=== PATIENT | female | born 1985 | race Caucasian/White ===

== ENCOUNTER 2019-09-11 07:01 | Inpatient (IN) | payer OTHER, SELFPAY ==
[2019-09-11] VITALS (103 sets, daily range): BP systolic 98–160; BP diastolic 45–109; PULSE 84–124; TEMP 36.8–37.2; O2SAT 95–100; BMI 35.9
[2019-09-11 07:48] LABS: Basophils Absolute Auto 0.1 K/mm3 (0.0-0.1); Basophils Percent Auto 0.6 % (0.2-1.2); Eosinophils Absolute Auto 0.1 K/mm3 (0-0.3); Hematocrit 35.3 % (37.0-47.0); Hemoglobin 11.6 g/dL (12.0-15.0); Immature Granulocyte Absolute 0.33 K/mm3 (0.00-0.031); Immature Granulocyte Percent A 3.2 % (0-0.5); Lymphocytes Absolute Auto 1.42 K/mm3 (0.9-3.2); Lymphocytes Percent Auto 13.8 % (18.3-44.2); Mean Corpuscular HGB Conc 32.9 g/dl (32-36); Mean Corpuscular Hemoglobin 30.6 pg (26-34); Mean Corpuscular Volume 93.1 fl (80-100); Mean Platelet Volume 10.7 fl (7.4-10.4); Monocytes Absolute Auto 0.7 K/mm3 (0.1-0.6); Monocytes Percent Auto 6.5 % (2.6-8.5); Neutrophils Absolute Auto 7.7 K/mm3 (1.3-6.7); Neutrophils Percent Auto 74.9 % (45.5-73.1); Platelet Count Result 203 k/mm3 (150-375); Red Blood Count 3.79 M/mm3 (4.2-5.4); Red Cell Distribution Width 13.9 % (11.5-14.5); White Blood Count 10.3 K/mm3 (4.5-10.0)
[2019-09-11] MEDS: OXYTOCIN 30 UNITS/NS 500 ML 30 UNITS/500 ML BAG IV CONT (07:54)
[2019-09-11] MEDS: LACTATED RINGERS 1,000 ML 125 ML IV CONT ×2 (07:55→18:12)
--- NOTE | 2019-09-11 08:27 | LDADM ---
This patient, Desi Huang, was admitted to Labor/Delivery/Recovery 102 on 09/11/19 at 07:01. Plans for labor, pain management and were discussed with patient. Patient/family oriented to hospital policies and general routines including ID bracelet, bed and alarms, visiting hours, pain management, procedures, bathroom and other care routines, personal items, smoking policy, room service/diet and guest tray routines, security routines, and visiting hours. Patient/Family are encouraged to report perceived risks to care and to ask questions if they do not understand what they are told or what they should do. See OBIX for further documentation.
[2019-09-11 10:06] LABS: Rapid Plasma Reagin Non-Reactive (NonReactive)
--- NOTE | 2019-09-11 10:33 | WPDHPUPDATE1 ---
History and Physical Update Update Date/Time: 09/11/19 10:33 34 yo at 40w0d who presents for elective IOL. pt has been uncomplicated to date. She endorses good FM. She denies any vaginal bleeding or LOF. Pt medical hx is complicated by possible ASD. pt has had Echocardiogram earlier in this with good cardiac function and cardiac clearance for vaginal delivery. History and Physical has been reviewed, including an updated exam of the patient. There are NO changes in the patient's condition. Risks, benefits, and alternatives have been discussed and questions answered. Patient agrees to proceed with procedure. A/P: 34 yo at 40w0d admit to L&D routine admission orders Rh+ GBS neg FHT cat 1 no ctx on toco cervix 3cm on exam pitocin induction continuous EFM.
--- NOTE | 2019-09-11 10:45 | P.PNAN_ITS ---
Anes - Eval Pre Procedure Procedure: Labor epidural Date/Time: 09/11/19 10:45 Surgeon: patricia Preop Diagnosis: pain during labor Pre Op Diagnosis: Induction of Labor Patient Data Age: 34 Gender: F Height: 1.63 m Weight: 95 kg Last Vital Signs Temp 36.8 C 09/11/19 09:05 Pulse 117 H 09/11/19 10:31 BP 123/72 09/11/19 10:31 Allergies Allergy/AdvReac Type Severity Reaction Status Date / Time nickel Allergy Rash Verified 09/11/19 08:35 Home Medications Medication Instructions Recorded Confirmed Type PNV cmb#95-ferrous fumarate-FA 1 tablet PO DAILY 08/12/19 08/12/19 History [] Laboratory Tests 09/11/19 09/11/19 09/11/19 07:36 07:36 07:36 WBC 10.3 K/mm3 H K/mm3 (4.5-10.0) RBC 3.79 M/mm3 L M/mm3 (4.2-5.4) Hgb 11.6 g/dL L g/dL (12.0-15.0) Hct 35.3 % L % (37.0-47.0) MCV 93.1 fl fl (80-100) MCH 30.6 pg pg (26-34) MCHC 32.9 g/dl g/dl (32-36) RDW 13.9 % % (11.5-14.5) Plt Count 203 k/mm3 k/mm3 (150-375) MPV 10.7 fl H fl (7.4-10.4) Immature Gran % (Auto) 3.2 % H % (0-0.5) Neut % (Auto) 74.9 % H % (45.5-73.1) Lymph % (Auto) 13.8 % L % (18.3-44.2) [place] % (Auto) 6.5 % % (2.6-8.5) Eos % (Auto) 1.0 % % (0-4.4) Baso % (Auto) 0.6 % % (0.2-1.2) Lymph # (Auto) 1.42 K/mm3 K/mm3 (0.9-3.2) [place] # (Auto) 0.7 K/mm3 H K/mm3 (0.1-0.6) Eos # (Auto) 0.1 K/mm3 K/mm3 (0-0.3) Baso # (Auto) 0.1 K/mm3 K/mm3 (0.0-0.1) Abs Immat Gran (auto) 0.33 K/mm3 H K/mm3 (0.00-0.031) Absolute Neuts (auto) 7.7 K/mm3 H K/mm3 (1.3-6.7) Absolute Nucleated RBC 0.0 K/mm3 K/mm3 (0.0-0.012) Nucleated RBC % 0.0 % % (0.0-0.2) RPR Non-reactive (NonReactive) Blood Type O Positive Antibody Screen Negative Patient hx anesthesia problems: none Family hx anesthesia problems: none PMFSH Past Medical History Medical History (Updated 09/11/19 @ 10:45 by Mya Stein CRNA) IUP (intrauterine ), incidental Obesity (BMI 30-39.9) Family History Family History (Updated 08/12/19 @ 14:08 by Megan Walls RN) Mother Heart disease Sibling Hypertension Social History Social History Smoking status: Never smoker Substance use: never Gender identity (if verbalized by the patient): Female Spiritual care concerns: No Exam Day of Procedure 09/11/19 10:45
--- NOTE | 2019-09-11 16:09 | PM.OBPNLAB ---
Pain Control Date/time seen: 09/11/19 16:09 Pain control: tolerating well Pelvic Exam Dilation (cm): 3 Effacement (%): 75 station: 0 Amniotic membrane status: Intact Contractions Monitor mode: External Contraction frequency: 4 Contraction pattern: Regular Contraction intensity: Moderate Status status: Category l Assessment and Plan Assessment: induction ongoing Plan: begin patient augmentation (AROM, clear fluid) Comments: continue current induction management
--- NOTE | 2019-09-11 20:37 | PM.OBPRVD ---
OB - Delivery Note Procedure Procedure: Patient pushed for a spontaneous vaginal delivery. The fetus was delivered atraumatically and placed on the maternal abdomen. The cord was clamped and cut after 1 minute of life. The cord was double clamped and cut and a segment of cord was collected for cord gases. Cord blood was collected for blood type and Coomb's testing. The placenta delivered spontaneously and was noted to be intact. The perineum was inspected and there were no lacerations noted. The uterus was firm and good hemostasis was noted. The patient and fetus were stable in the delivery room. Intrapartal events: None Induction method: per pitocin protocol Delivery augmentation: rupture of membranes Delivery monitor: external FHT Route of delivery: Episiotomy description: None Laceration description: None Specimen: No Estimated blood loss (mL): 250 Anesthesia type: Epidural Disposition: floor () Complications: No immediate complications Baby Date of : 09/11/19 Time of : 20:25 Weeks of gestation at delivery: 40 Infant gender: Female Weight (pounds): 8 Weight (ounces): 7 presentation: vertex position: Right Occiput Anterior Placenta delivery description: Spontaneous cord vessel description: 3 Vessels score one minute: 8 score five minutes: 8
[2019-09-11] MEDS: OXYTOCIN 30 UNITS/NS 500 ML 30 UNITS/500 ML BAG 125 UNITS IV CONT (21:16)
[2019-09-11] MEDS: WITCH HAZEL 40 PADS 1 PAD TOPICAL (22:32)
[2019-09-11] MEDS: BENZOCAINE 20% AER SPR (*SP) 56 GM CAN 1 SPRAY TOPICAL (22:32)
[2019-09-12] VITALS: BP 126/85; PULSE 97; RESP 18; TEMP 37.2; O2SAT 96
--- NOTE | 2019-09-12 00:22 | PC.NURSE ---
Patient and arrived to room 291 on 09/11/19 at 2318 via wheelchair and infant in crib. Support person (Terri Campos) present. Patient oriented to room, admission packet reviewed, call light in reach. Rusty PRETTY
[2019-09-12 05:32] LABS: Hemoglobin 12.1 g/dL (12.0-15.0)
--- NOTE | 2019-09-12 07:24 | PM.OBDSVD ---
OB - DS: Summary OB Procedures : None OB Procedures Intrapartum: Spontaneous Vag Delivery OB Procedures: : None Status at Discharge Functional status at discharge: independent ambulation Overall status at discharge: patient is back to baseline Time Spent with Patient Time attestation: Total time spent providing and/or coordinating discharge services: Time spent: Less than 30 minutes Exam Const: General: comfortable and no acute distress Resp: Effort & Inspection: normal respiratory effort Auscultation: clear to auscultation bilaterally Cardio: Rate: regular rate GI: GI Palp: Yes Soft to palpation Auscultation: normal bowel sounds Other: Fundus firm below umbilicus Psych: Appearance: grossly normal Mental Status: mental status grossly normal Affect: normal affect DS: Data Data Completed and Pending Labs on day of discharge: Labs from last 24 hours 09/12/19 09/11/19 09/11/19 05:02 07:36 07:36 WBC RBC Hgb 12.1 Hct 37.0 MCV MCH MCHC RDW Plt Count MPV Immature Gran % (Auto) Neut % (Auto) Lymph % (Auto) [place] % (Auto) Eos % (Auto) Baso % (Auto) Lymph # (Auto) [place] # (Auto) Eos # (Auto) Baso # (Auto) Abs Immat Gran (auto) Absolute Neuts (auto) Absolute Nucleated RBC Nucleated RBC % RPR Non-reactive Blood Type O Positive Antibody Screen Negative 09/11/19 07:36 WBC 10.3 H RBC 3.79 L Hgb 11.6 L Hct 35.3 L MCV 93.1 MCH 30.6 MCHC 32.9 RDW 13.9 Plt Count 203 MPV 10.7 H Immature Gran % (Auto) 3.2 H Neut % (Auto) 74.9 H Lymph % (Auto) 13.8 L [place] % (Auto) 6.5 Eos % (Auto) 1.0 Baso % (Auto) 0.6 Lymph # (Auto) 1.42 [place] # (Auto) 0.7 H Eos # (Auto) 0.1 Baso # (Auto) 0.1 Abs Immat Gran (auto) 0.33 H Absolute Neuts (auto) 7.7 H Absolute Nucleated RBC 0.0 Nucleated RBC % 0.0 RPR Blood Type Antibody Screen Discharge Plan Discharge Discharging Clinician: Tito Smith Patient Disposition: Home, Self-Care Activity: pelvic rest Diet: regular Discharge Instructions: call or return for temperature >100.4, bleeding >2 pads/hr for 2 hrs, pain not controlled with medications, signs/symptoms of mastitis Patient Instructions: Antibiotic Form, Vaginal Delivery (DC) Stand Alone Forms: General Discharge Information Follow-up/Referrals: Ronn Dawson MD [Physician] - Discharge Medications: New ibuprofen 600 mg Tablet 600 mg PO Q6H PRN (Reason: Cramping) Qty: 30 RF: 0 acetaminophen [Mapap (acetaminophen)] 325 mg Tablet 650 mg PO Q6H PRN (Reason: Mild Pain (1-3) Or Headache) Qty: 30 RF: 0 Ccf-E-Vwbcvi Cream 1 applic topical PRN PRN (Reason: Sore Nipples) Qty: 1 RF: 0 Continued PNV cmb#95-ferrous fumarate-FA [] 28 mg iron- 800 mcg Tablet 1 tablet PO DAILY RF: 0 Date of admission: 09/11/19 07:01 Primary Care Provider: PHYSICIAN,ENTRY LEVEL FINANCIAL ANALYST Admitting Provider: Ronn Dawson Attending physician on admission: Ronn Dawson
[2019-09-12 08:00] VITALS: BP 113/67; PULSE 87; RESP 20; TEMP 37
[2019-09-12] MEDS: LANOLIN (LANSINOH) 7.5 GM CREAM 1 APPLIC TOPICAL (08:12)
[2019-09-12] MEDS: DOCUSATE SODIUM 100 MG CAPSULE PO ×2 (08:12→16:27)
[2019-09-12] MEDS: MULTIVIT/MIN/PREN/FOL AC/IRON TABLET 1 TAB PO (08:12)
--- NOTE | 2019-09-12 09:46 | WPDANLDPN2 ---
Anes-Prog Note L&D Date/Time: 09/12/19 09:46 Comfortable throughout: labor Epidural/Spinal procedure site: clean & non-tender Neuro status: Neuro function grossly intact. Cardiovascular status: normal Respiratory status: normal Airway patency: baseline Mental status: baseline Post-Op hydration status: normal Vital Signs: Last Vital Signs Temp 37.0 C 09/12/19 08:00 Pulse 87 09/12/19 08:00 Resp 20 09/12/19 08:00 BP 113/67 09/12/19 08:00 Pulse Ox 96 09/12/19 00:00 I/O: Intake & Output 09/11/19 09/12/19 09/12/19 23:59 07:59 15:59 Intake Total 1500 Output Total 108 Balance 1392 Post-procedural complaints: none Patient feedback: Patient satisfied with anesthetic care.
--- NOTE | 2019-09-12 12:10 | PC.NURSE ---
Mother called out for assist with latching to right breast. Mother states will latch to left without difficulties or discomfort. Right nipple is slightly inverted and mother has had issues with latching as she did with first child for a few weeks. Discussed rolling nipple or pumping before latch to draw out nipple. Mother states she has attempted and it does not draw nipple out enought for infant to latch. Offered and explained the Latch assist. Demonstrated use. Mother was able to independently use and latch correctly. Reviewed positioning/alignment in cross cradle, holding breast in U hold and guided asymmetrical latch on. Discussed the rational for each. Infant was able to latch correctly. Infant nursed eagerly, with steady draws and frequent swallowing noted. Reviewed signs of a correct latch, effective nursing and suck swallow ratio. was able to maintain latch without discomfort to mother. Nipple care reviewed. Instructed mother to call out for RN assistance if she is unable to latch for feeding or she has discomfort with nursing. Instructed feeding should be initiated three hours from start of last feeding or if feeding cues are noted before. Mother voiced understanding of information shared. Reviewed feeding cues, frequencies, duration of feedings, feeding elimination flow sheet, and signs of adequate intake. Mother wishes for early discharge. Mother is feeding as required and waking infant to feed if needed. Infant is currently meeting outcomes for weight, output, jaundice and feeding frequencies. Mother states she feels confident to continue effective at home. Reviewed transition to breast milk, signs of adequate intake, and engorgement/relief. Instructed to call ICP if intake/output less than required. Reviewed regular medications mother is taking. Information provided per Davina. Reviewed community resources on the [facility] website and in the Mom/Baby guide. Information on outpatient services provided. Mother has no further questions at this time.
[2019-09-12] MEDS: BENZOCAINE 20% AER SPR (*SP) 56 GM CAN 1 SPRAY TOPICAL (16:26)
[2019-09-12] MEDS: WITCH HAZEL 40 PADS 1 PAD TOPICAL (16:26)
[2019-09-13 13:41] VITALS: BP 126/89; PULSE 78; RESP 18; TEMP 36.7; O2SAT 98
== END 2019-09-12 21:15 | disposition home or self-care (01) | DRG 807 ==
LOC: ANHOB2 09-12 09:50 → ANHLDR 09-14 07:37 → ANHOB2 09-14 07:37
PROVIDERS: Admitting Provider Student in an Organized Health Care Education/Training Program; Visit Provider Student in an Organized Health Care Education/Training Program
DX: O80 Encounter for full-term uncomplicated delivery (principal); Z37.0 Single live birth; Z3A.40 40 weeks gestation of pregnancy
CPT/HCPCS: 36415; 85014; 85018; 85025; 86592; 86850; 86900; 86901; A9270; J2590; J2795; J7120

== ENCOUNTER 2023-03-11 05:58 | Inpatient (IN) | payer OTHER, SELFPAY ==
[2023-03-11] VITALS (125 sets, daily range): BP systolic 85–144; BP diastolic 34–95; PULSE 72–134; RESP 16–18; TEMP 36.3–36.8; O2SAT 92–100; BMI 34.8
--- NOTE | 2023-03-11 06:44 | LDADM ---
This patient, Desi Huang, was admitted to Labor/Delivery/Recovery 104 on 03/11/23 at 05:58. Plans for labor, pain management and were discussed with patient. Patient/family oriented to hospital policies and general routines including ID bracelet, bed and alarms, visiting hours, pain management, procedures, bathroom and other care routines, personal items, smoking policy, room service/diet and guest tray routines, security routines, and visiting hours. Patient/Family are encouraged to report perceived risks to care and to ask questions if they do not understand what they are told or what they should do. See OBIX for further documentation.
[2023-03-11 06:51] LABS: Basophils Percent Auto 0.4 % (0.2-1.2); Eosinophils Absolute Auto 0.1 K/mm3 (0-0.3); Eosinophils Percent Auto 1.3 % (0-4.4); Hematocrit 38.1 % (37.0-47.0); Hemoglobin 11.7 g/dL (12.0-15.0); Immature Granulocyte Absolute 0.22 K/mm3 (0.00-0.031); Immature Granulocyte Percent A 2.2 % (0-0.5); Lymphocytes Absolute Auto 1.33 K/mm3 (0.9-3.2); Lymphocytes Percent Auto 13.5 % (18.3-44.2); Mean Corpuscular HGB Conc 30.7 g/dl (32-36); Mean Corpuscular Hemoglobin 28.9 pg (26-34); Mean Corpuscular Volume 94.1 fl (80-100); Mean Platelet Volume 10.2 fl (7.4-10.4); Monocytes Absolute Auto 0.5 K/mm3 (0.1-0.6); Monocytes Percent Auto 5.5 % (2.6-8.5); Neutrophils Absolute Auto 7.6 K/mm3 (1.3-6.7); Neutrophils Percent Auto 77.1 % (45.5-73.1); Platelet Count Result 182 k/mm3 (150-375); Red Blood Count 4.05 M/mm3 (4.2-5.4); Red Cell Distribution Width 22.4 % (11.5-14.5); White Blood Count 9.8 K/mm3 (4.5-10.0)
[2023-03-11] MEDS: OXYTOCIN 30 UNITS/NS 500 ML 30 UNITS/500 ML BAG IV CONT (06:55)
[2023-03-11] MEDS: LACTATED RINGERS 1,000 ML 125 ML IV CONT ×2 (06:56→12:02)
[2023-03-11] MEDS: AMPICILLIN 2 GM/NS 100 ML 2 GM/100 ML BAG IVPB (06:57)
[2023-03-11 07:25] LABS: Platelet Estimate Adequate (Adequate)
[2023-03-11 07:26] LABS: Hypochromasia 1+ (NORMAL); Schistocytes Rare (NORMAL)
[2023-03-11 07:27] LABS: Anisocytosis 1+ (NORMAL); Atypical Lymphocytes Present
--- NOTE | 2023-03-11 08:47 | WPDOBADMIT ---
Obstetrics - Admit Note Admission Note: record reviewed. Additions to the history and/or subsequent changes in the physical findings follow. 38 y/o at 40 weeks with favorable cervix, here for scheduled induction of labor. GBS pos. AVSS NST reactive TOCO: contractions irregularly ABD soft, nontender, gravid, vertex EXT nontender Cervix 3-4/50/-2. AROM with clear fluid. Vertex. A: IUP at term, desiring induction of labor. GBS pos. P: Oxytocin. Ampicillin. Anticipate .
[2023-03-11] MEDS: AMPICILLIN 1 GM/NS 50 ML 1 GM/50 ML BAG IVPB ×2 (11:00→15:00)
--- NOTE | 2023-03-11 12:41 | PM.OBPNLAB ---
Pain Control Date/time seen: 03/11/23 12:41 Comments: Comfortable with epidural. Pelvic Exam Dilation (cm): 4 Effacement (%): 50 station: -2 Comments: IUPC placed. Contractions Contraction frequency: 3 Contraction pattern: Regular Contraction intensity: Strong/Firm Status status: Category l Assessment and Plan Plan: continuous present management
--- NOTE | 2023-03-11 12:44 | WPDANESEPP ---
Anes - Eval Pre Procedure Procedure: labor pain management Date/Time: 03/11/23 12:44 Surgeon: Eunice Preop Diagnosis: pain during labor Pre Op Diagnosis: IOL Patient Data Age: 38 Gender: F Height: 1.63 m Weight: 92 kg Last Vital Signs Temp 97.8 F 03/11/23 11:43 Pulse 87 03/11/23 12:43 Resp 18 03/11/23 11:43 BP 124/63 03/11/23 12:43 Pulse Ox 100 03/11/23 12:44 O2 Del Method Room Air 03/11/23 06:40 Allergies Allergy/AdvReac Type Severity Reaction Status Date / Time nickel Allergy Rash Verified 02/22/23 15:45 Home Medications Medication Instructions Recorded Confirmed Type vit no.95-ferrous 1 tablet PO DAILY 08/12/19 03/11/23 History fumarate 28 mg-folic acid 800 mcg tablet () ferrous sulfate 325 mg (65 mg 325 mg PO DAILY 02/22/23 03/11/23 History iron) tablet Laboratory Tests 03/11/23 03/11/23 06:45 06:46 WBC 9.8 K/mm3 (4.5-10.0) RBC 4.05 L M/mm3 (4.2-5.4) Hgb 11.7 L g/dL (12.0-15.0) Hct 38.1 % (37.0-47.0) MCV 94.1 fl (80-100) MCH 28.9 pg (26-34) MCHC 30.7 L g/dl (32-36) RDW 22.4 H % (11.5-14.5) Plt Count 182 k/mm3 (150-375) MPV 10.2 fl (7.4-10.4) Immature Gran % (Auto) 2.2 H % (0-0.5) Neut % (Auto) 77.1 H % (45.5-73.1) Lymph % (Auto) 13.5 L % (18.3-44.2) [place] % (Auto) 5.5 % (2.6-8.5) Eos % (Auto) 1.3 % (0-4.4) Baso % (Auto) 0.4 % (0.2-1.2) Lymph # (Auto) 1.33 K/mm3 (0.9-3.2) [place] # (Auto) 0.5 K/mm3 (0.1-0.6) Eos # (Auto) 0.1 K/mm3 (0-0.3) Baso # (Auto) 0.0 K/mm3 (0.0-0.1) Abs Immat Gran (auto) 0.22 H K/mm3 (0.00-0.031) Absolute Neuts (auto) 7.6 H K/mm3 (1.3-6.7) Absolute Nucleated RBC 0.0 K/mm3 (0.0-0.012) Nucleated RBC % 0.0 % (0.0-0.2) Atypical Lymphocytes Present Platelet Estimate Adequate (Adequate) Hypochromasia 1+ (NORMAL) Anisocytosis 1+ (NORMAL) Schistocytes Rare (NORMAL) RPR Pending Blood Type O Positive Antibody Screen Negative Patient hx anesthesia problems: none Family hx anesthesia problems: none Results Review: All pre-operative results and documents have been reviewed as part of the pre-operative evaluation. [facility] Past Medical History Medical History IUP (intrauterine ), incidental Obesity (BMI 30-39.9) Family History Family History Mother Heart disease Sibling Hypertension Social History Social History Smoking status: Never smoker Substance use: never Do You Feel Safe in your Home?: Yes Lack of Transportation: No Lack of Food: Never True Current Housing: I Have Housing Concerned About Future Housing: No Difficulty Paying Gas/Electric Bills: No Difficulty Paying for Meds: No Currently Unemployed: No Education: Associate Degree Difficulty w/ Childcare or Family Care: No Gender identity (if verbalized by the patient): Female Spiritual care concerns: No Exam Day of Procedure 03/11/23 12:44
[2023-03-11 14:45] LABS: Rapid Plasma Reagin Non-Reactive (NonReactive)
--- NOTE | 2023-03-11 15:51 | PM.OBPRVD ---
OB - Vaginal Delivery Note Procedure Delivery date: 03/11/23 Events: Elective Induction of Labor and Positive Group B Strep (GBS) Induction method: Per Pitocin Protocol Delivery augmentation: Rupture of Membranes Delivery monitor: External FHT, External Uterine and Internal Uterine Route of delivery: Episiotomy description: None Laceration Description: None Specimen: Yes (cord blood) Quantitative Blood Loss (ml): 80 Anesthesia type: Epidural Disposition: PACU Complications: None Narrative: 38 y/o at 40 weeks gestation who presented to the hospital for induction of labor. She was given ampicillin for GBS colonization. Oxytocin was administered intravenously. Amniotomy was performed with return of clear fluid. She received an epidural for pain control. Her labor progressed and her cervix dilated completely. She pushed with good effort and delivered the infant's head to the perineum, followed by the body. The nose and mouth were bulb suctioned. After a delay, the cord was clamped and cut. The was handed off the field. Cord blood was collected. The placenta delivered spontaneously and was grossly normal in appearance. The usual 3 vessel cord was noted. There were no lacerations. Needle and instrument counts were correct. The patient was taken to recovery room in stable condition. The infant went to the nursery in stable condition. I was present and scrubbed for the entire delivery. Baby Date of : 03/11/23 Time of : 15:40 Weeks of gestation at delivery: 40 gender: Female presentation: vertex position: Right Occiput Anterior Placenta delivery description: Spontaneous and Normal Configuration Cord Vessel Description: 3 Vessels score one minute: 9 score five minutes: 9
--- NOTE | 2023-03-11 15:53 | PM.OBDSVD ---
DS: Admitting Diagnosis Discharge Date 03/12/23 Admitting Diagnosis IUP at 40 weeks GBS pos DS: Discharge Diagnosis Discharge Diagnosis (1) (normal spontaneous vaginal delivery): Code(s): O80 - Encounter for full-term uncomplicated delivery Status: Acute (2) GBS (group B Streptococcus carrier), +RV culture, currently : Code(s): O99.820 - Streptococcus B carrier state complicating Status: Acute OB - DS: Summary OB Procedures : None OB Procedures Intrapartum: Spontaneous Vag Delivery and GBS prophylaxis OB Procedures: : None Peripartum Data Laceration Description: None Episiotomy description: None Time Spent with Patient Time attestation: Total time spent providing and/or coordinating discharge services: DS: Data Data Completed and Pending Labs on day of discharge: Labs from last 24 hours 03/11/23 03/11/23 06:46 06:45 WBC 9.8 RBC 4.05 L Hgb 11.7 L Hct 38.1 MCV 94.1 MCH 28.9 MCHC 30.7 L RDW 22.4 H Plt Count 182 MPV 10.2 Immature Gran % (Auto) 2.2 H Neut % (Auto) 77.1 H Lymph % (Auto) 13.5 L [place] % (Auto) 5.5 Eos % (Auto) 1.3 Baso % (Auto) 0.4 Lymph # (Auto) 1.33 [place] # (Auto) 0.5 Eos # (Auto) 0.1 Baso # (Auto) 0.0 Abs Immat Gran (auto) 0.22 H Absolute Neuts (auto) 7.6 H Absolute Nucleated RBC 0.0 Nucleated RBC % 0.0 Atypical Lymphocytes Present Platelet Estimate Adequate Hypochromasia 1+ Anisocytosis 1+ Schistocytes Rare RPR Non-reactive Blood Type O Positive Antibody Screen Negative Discharge Plan Discharge Attending physician on discharge: Ronn Dawson Consulting providers: Shae Wheat Discharging Clinician: Ronn Dawson Patient Disposition: Home, Self-Care Activity: pelvic rest Diet: regular Discharge Instructions: Education: Mom and Baby Guide Given to: Mother Follow-Up: Call your delivering provider's office for an appointment to be seen in: 6 Weeks Mom and baby should come to the [facility] for the follow-up appointment. Appointment Date/Time: Wednesday, March 15, 2023 at 2:30 pm What to expect at your follow-up visit: Physical Assessment Call [phone] if you are unable to keep your appointment time. BREAST CARE: * Wear a snug supportive bra. * For engorgement discomfort: Breast Feeding: * Apply warm moist washcloths * Express milk as needed to relieve engorgement * Wear loose clothing * For sore nipples: * Identify correct latch-on * Apply warm moist washcloths before and after nursing * Air dry nipples after nursing * May apply Lansinoh cream to nipples EPISIOTOMY/PERINEAL CARE: * Until bleeding stops, use your wayne bottle after urinating * Change your pad frequently throughout the day * You may take sitz baths several times a day (fill your bathtub with warm water and soak for 20 minutes.) Do NOT bathe in the water * No tub baths until seen by your physician - You may shower ACTIVITY: * Rest as much as possible. * Do not exercise or lift anything heavier than your baby (such as laundry or other children.) * Avoid stairs or driving as much as possible. * Do not put anything into the vagina. No douching, tampons, or sexual activity until seen by physician. NOTIFY PHYSICIAN IF YOU HAVE ANY QUESTIONS OR IF ANY OF THE FOLLOWING SYMPTOMS OCCUR: * If your episiotomy or incision becomes red, swollen, or more painful than what you have experienced in the hospital. * If your vaginal bleeding becomes foul smelling. * If your vaginal bleeding becomes more heavy than a period or if your bleeding changes from pink to bright red. However, you may pass an occasional walnut-sized clot once or twice for the first week . * If you experience a sharp, shooting pain in you calves. * If you discover a
[2023-03-11] MEDS: OXYTOCIN 30 UNITS/NS 500 ML 30 UNITS/500 ML BAG 125 UNITS IV CONT (16:17)
[2023-03-11] MEDS: ACETAMINOPHEN 325 MG TABLET 650 MG PO (17:16)
[2023-03-11] MEDS: WITCH HAZEL 40 PADS 1 PAD TOPICAL (17:16)
[2023-03-11] MEDS: BENZOCAINE 20% AER SPR (*SP) 56 GM CAN 1 SPRAY TOPICAL (17:16)
[2023-03-11] MEDS: LANOLIN (LANSINOH) 7.5 GM CREAM 1 APPLIC TOPICAL (17:18)
--- NOTE | 2023-03-11 18:30 | OBPPTRN ---
Patient transferred to post room #292 via w/c. Support person present. Oriented to unit, room, information board, rooming in, admission packet and security measures. Patient verbalizes understanding.
[2023-03-12] VITALS: BP 109/75; PULSE 91; RESP 18; TEMP 36.6
[2023-03-12 04:46] LABS: Hematocrit 37.8 % (37.0-47.0); Hemoglobin 11.4 g/dL (12.0-15.0)
--- NOTE | 2023-03-12 06:57 | PM.OBPNVD ---
OB - PN: Subj Subjective Date/time seen: 03/12/23 06:57 Patient comments: no complaints and pain well controlled baby status: doing well OB - PN: Obj Data Labs 03/12/23 04:06 Labs: Laboratory Results - last 24 hr 03/11/23 03/11/23 03/12/23 06:45 06:46 04:06 Hgb 11.4 L Hct 37.8 Atypical Lymphocytes Present Platelet Estimate Adequate Hypochromasia 1+ Anisocytosis 1+ Schistocytes Rare RPR Non-reactive Blood Type O Positive Antibody Screen Negative OB - PN A/P Plan day: 2 Plan: routine care, discharge home and follow up 6 weeks Time Spent With Patient Time: Total time spent is greater than 50% in coordination of care (as documented) at patient's floor/unit and/or counseling patient: Time with patient: less than 15 minutes Exam Const: General: cooperative, healthy appearing and comfortable Nutritional Appearance: average body habitus Orientation/consciousness: oriented to person, oriented to place and oriented to time Resp: Effort & Inspection: normal respiratory effort GI: Inspection: normal to inspection (Fundus firm below the umbilicus)
[2023-03-12 07:30] VITALS: BP 113/65; PULSE 78; RESP 16; TEMP 36.7; O2SAT 98
[2023-03-12 12:04] VITALS: BP 131/88; PULSE 88; RESP 16; TEMP 36.7; O2SAT 99
--- NOTE | 2023-03-12 16:46 | PC.NURSE ---
[id number] Introductions were made, then consulted with patient to assess needs related to . Mother led the conversation with her?plans to feed?her infant, the?experience so far, her history with , and pointed out the small purple bruise like spot on her areola from an earlier feeding. Encouraged understanding of the benefits of skin to skin (demonstrating unwrapping infant and placing upright on her chest), stimulating with massage touch, changing positions to encourage wakefulness, how to watch for early feeding cues, responsive feeding, feeding on demand (aiming for 8-12 times in 24 hours, about every 2-3 hours), milk production, hand expression, building/maintaining a milk supply, duration of feeding, signs of adequate intake/output and how to record on the feeding sheet. Mother works well with her infant with encouragement and education. Reviewed positioning and ear, shoulder, hip alignment, supporting the breast to facilitate a deep latch, asymmetrical latch (off-center), leading with the chin with a big, open, wide gape and body close to mother. Mother hand expressed and encouraged the milk to express, then latched optimally to the left, then right breast in cross cradle position. Education given to the mother of how to visualize the suckling (with good rocking jaw motion), swallows (dropping of the lower jaw) and how to listen for drinking at the breast (the ka sound) and infant demonstrated effective with lowering of the jaw with good ratios of suck/swallow. Infant was able to maintain latch without pain to mother protecting the nipple with optimal positioning and latching. Reviewed comfort measures of healing with a warm, wet washcloth to rinse breast, then leave open to air-dry, good handwashing when or touching the breast/nipples to prevent infection. Mother voiced understanding of skin to skin, stimulating with massage touch, responsive feedings, hand expressed colostrum, talking to infant to encourage if it has been 2 -2.5 hours since the start of the last , to call if does not latch, or if there is discomfort with . Resources used for education were facilitated with the visual educational handouts, tool, mom and baby guide. Inpatient/outpatient resources provided with feeding sheet and the mom/baby guide. Mother voiced understanding of information, demonstrated learning and will call if there is a request for assistance. Reported to the Primary RN.
[2023-03-15 15:06] VITALS: BP 119/73; PULSE 83; RESP 18; TEMP 36.9; O2SAT 99
== END 2023-03-12 19:00 | disposition home or self-care (01) | DRG 807 ==
LOC: ANHLDR 15:54 → ANHOB2 03-12 17:25 → ANHLDR 03-15 08:52 → ANHOB2 03-15 08:52
PROVIDERS: Admitting Provider Obstetrics & Gynecology; Visit Provider Obstetrics & Gynecology
DX: O99.824 Streptococcus B carrier state complicating childbirth (principal); Z37.0 Single live birth; Z3A.40 40 weeks gestation of pregnancy
CPT/HCPCS: 36415; 85014; 85018; 85025; 86592; 86850; 86900; 86901; A9270; J0290; J2590; J2795; J7120